=== PATIENT | female | born 1940 | race Caucasian/White ===

== ENCOUNTER 2016-07-08 10:20 | Emergency (ER) | payer MEDICARE, OTHER ==
[~2016-07-08 10:20] MED LIST: ASPIRIN81 MG PO; B-12500 MCG PO; CEFDINIR300 MG PO; CEFTIN250 MG PO; COLACE100 MG PO; COUMADIN2.5 MG PO; LACTULOSE10 G/15 ML PO; LASIX20 MG PO; LEVAQUIN500 MG PO; LEVAQUIN750 MG PO; LIPITOR10 MG PO; LOPRESSOR25 MG PO; METOPROLOL 1212.5 MG PO; PRILOSEC20 MG PO; PROBIOTIC1 EAC1 PO; XIFAXAN550 MG PO; ZINC SULFATE220 M1 PO
[2016-07-08 10:54] LABS: BILIRUBIN NEGATIVE (NEGATIVE); BLOOD 1+ Ery/uL (NEGATIVE); CLARITY CLEAR (CLEAR); COLOR YELLOW (YELLOW); GLUCOSE (U) NORMAL (NORMAL); KETONE (U) NEGATIVE (NEGATIVE); LEUKOCYTES 2+ Leu/uL (NEGATIVE); NITRITE POSITIVE (NEGATIVE); PROTEIN NEGATIVE (NEGATIVE); pH 8.5 (5.0-9.0)
[2016-07-08 10:56] LABS: BASOPHIL 0.1 % (0-2); EOSINOPHIL 0 % (0-7); HCT 44.6 % (37.0-47.0); HGB 15.2 g/dl (12.5-16.0); LYMPHOCYTE 16.3 % (15-48); MCH 33.9 pg (25.0-31.0); MCHC 34.1 g/dL (32.0-36.0); MCV 99.6 fL (78.0-100.0); MONOCYTE 10.4 % (0-12); MPV 10.6 fL (6.0-9.5); NEUTROPHIL 73.2 % (41-80); PLT 80 K/uL (150-400); RBC 4.48 M/uL (4.20-5.40); RDW 15.3 % (11.5-14.0); WBC 7.1 K/uL (4.0-10.5)
[2016-07-08 11:07] LABS: BACTERIA 4+
[2016-07-08 11:09] LABS: ALBUMIN 3.3 g/dL (3.4-4.8); BILIRUBIN - TOTAL 2.1 mg/dL (0.1-1.0); CREATININE 0.6 mg/dL (0.5-1.0); GLOBULIN (CALCULATION) 2.8 g/dL (2.2-4.2); POTASSIUM 4.7 mmol/L (3.5-5.1); TOTAL PROTEIN 6.1 g/dL (6.4-8.3)
== END 2016-07-08 12:40 | disposition home or self-care (01) ==
LOC: FER 10:20
PROVIDERS: Emergency Medicine
DX: N39.0 Urinary tract infection, site not specified (principal); R41.0 Disorientation, unspecified; I87.8 Other specified disorders of veins; R53.83 Other fatigue; K74.60 Unspecified cirrhosis of liver; Z87.440 Personal history of urinary (tract) infections; Z79.899 Other long term (current) drug therapy
CPT/HCPCS: 36415; 80053; 81001; 82140; 85025

== ENCOUNTER 2016-08-14 08:43 | Inpatient (IN) | payer MEDICARE, OTHER ==
[~2016-08-14] VITALS: Ht 177.8 cm; Wt 76.3 kg
[2016-08-14 09:28] LABS: BASOPHIL 0.5 % (0-2); EOSINOPHIL 1.3 % (0-7); HCT 41.6 % (37.0-47.0); HGB 13.9 g/dl (12.5-16.0); LYMPHOCYTE 30.8 % (15-48); MCHC 33.4 g/dL (32.0-36.0); MCV 101.7 fL (78.0-100.0); MONOCYTE 17.1 % (0-12); MPV 11.4 fL (6.0-9.5); NEUTROPHIL 50.3 % (41-80); RBC 4.09 M/uL (4.20-5.40); RDW 15.6 % (11.5-14.0)
[2016-08-14 09:30] LABS: BILIRUBIN NEGATIVE (NEGATIVE); BLOOD 2+ Ery/uL (NEGATIVE); CLARITY SLIGHTLY HAZY (CLEAR); COLOR YELLOW (YELLOW); GLUCOSE (U) NORMAL (NORMAL); KETONE (U) NEGATIVE (NEGATIVE); LEUKOCYTES 3+ Leu/uL (NEGATIVE); NITRITE POSITIVE (NEGATIVE); PROTEIN NEGATIVE (NEGATIVE); pH 8.5 (5.0-9.0)
[2016-08-14 09:31] LABS: PLT 82 K/uL (150-400); WBC 3.8 K/uL (4.0-10.5)
[2016-08-14 09:34] LABS: BACTERIA 4+; URINARY WBC TNTC
[2016-08-14 09:41] LABS: ALBUMIN 3.3 g/dL (3.4-4.8); BILIRUBIN - TOTAL 1.5 mg/dL (0.1-1.0); CREATININE 0.6 mg/dL (0.5-1.0); GLOBULIN (CALCULATION) 2.9 g/dL (2.2-4.2); POTASSIUM 4.5 mmol/L (3.5-5.1); TOTAL PROTEIN 6.2 g/dL (6.4-8.3)
[2016-08-14 20:55] LABS: AMPHETAMINES NEGATIVE (NEGATIVE); BARBITURATES NEGATIVE (NEGATIVE); BENZODIAZEPINES NEGATIVE (NEGATIVE); COCAINE NEGATIVE (NEGATIVE); MARIJUANA (THC) NEGATIVE (NEGATIVE); METHADONE NEGATIVE (NEGATIVE); TRICYCLIC ANTIDEPRESSANT NEGATIVE (NEGATIVE)
[2016-08-14 22:17] LABS: BASOPHIL 0.5 % (0-2); EOSINOPHIL 0.5 % (0-7); HCT 40.1 % (37.0-47.0); HGB 13.2 g/dl (12.5-16.0); LYMPHOCYTE 24.7 % (15-48); MCH 33.7 pg (25.0-31.0); MCHC 32.9 g/dL (32.0-36.0); MCV 102.3 fL (78.0-100.0); MONOCYTE 14.9 % (0-12); MPV 10.3 fL (6.0-9.5); NEUTROPHIL 59.4 % (41-80); PLT 80 K/uL (150-400); RBC 3.92 M/uL (4.20-5.40); RDW 15.5 % (11.5-14.0); WBC 4.2 K/uL (4.0-10.5)
[2016-08-14 22:27] LABS: INR 3.42 (0.9-1.2); PROTHROMBIN TIME 33.7 SECONDS (11.7-14.0)
[2016-08-14 22:28] LABS: PTT 43.6 SECONDS (23.2-31.4)
[2016-08-14 22:31] LABS: LACTIC ACID 1.3 mmol/L (0.5-2.2)
[2016-08-14 22:34] LABS: BILIRUBIN - TOTAL 1.3 mg/dL (0.1-1.0); CREATININE 0.6 mg/dL (0.5-1.0); GLOBULIN (CALCULATION) 2.5 g/dL (2.2-4.2); POTASSIUM 4.3 mmol/L (3.5-5.1); TOTAL PROTEIN 5.5 g/dL (6.4-8.3)
[2016-08-15 05:55] LABS: BASOPHIL 0.5 % (0-2); EOSINOPHIL 1.6 % (0-7); HCT 39.2 % (37.0-47.0); HGB 12.9 g/dl (12.5-16.0); LYMPHOCYTE 32.6 % (15-48); MCH 33.7 pg (25.0-31.0); MCHC 32.9 g/dL (32.0-36.0); MCV 102.3 fL (78.0-100.0); MONOCYTE 14.6 % (0-12); MPV 11.1 fL (6.0-9.5); NEUTROPHIL 50.7 % (41-80); RBC 3.83 M/uL (4.20-5.40); RDW 15.6 % (11.5-14.0); WBC 4.4 K/uL (4.0-10.5)
[2016-08-15 05:57] LABS: PLT 67 K/uL (150-400)
[2016-08-15 06:15] LABS: CREATININE 0.5 mg/dL (0.5-1.0); POTASSIUM 3.8 mmol/L (3.5-5.1)
[2016-08-16 04:11] LABS: HCT 40.6 % (37.0-47.0); MCH 32.9 pg (25.0-31.0); MCV 102.8 fL (78.0-100.0); MPV 10.8 fL (6.0-9.5); RBC 3.95 M/uL (4.20-5.40); RDW 15.3 % (11.5-14.0); WBC 4.1 K/uL (4.0-10.5)
[2016-08-16 04:24] LABS: INR 2.9 (0.9-1.2); PROTHROMBIN TIME 29.6 SECONDS (11.7-14.0)
[2016-08-16 04:33] LABS: ALBUMIN 2.7 g/dL (3.4-4.8); BILIRUBIN - TOTAL 1.4 mg/dL (0.1-1.0); CREATININE 0.4 mg/dL (0.5-1.0); GLOBULIN (CALCULATION) 2.2 g/dL (2.2-4.2); POTASSIUM 4.4 mmol/L (3.5-5.1); TOTAL PROTEIN 4.9 g/dL (6.4-8.3)
[2016-08-17 04:49] LABS: HCT 39.7 % (37.0-47.0); HGB 12.9 g/dl (12.5-16.0); MCH 33.2 pg (25.0-31.0); MCHC 32.5 g/dL (32.0-36.0); MCV 102.3 fL (78.0-100.0); MPV 10.6 fL (6.0-9.5); RBC 3.88 M/uL (4.20-5.40); RDW 15.1 % (11.5-14.0); WBC 3.5 K/uL (4.0-10.5)
[2016-08-17 05:01] LABS: INR 2.65 (0.9-1.2); PROTHROMBIN TIME 27.6 SECONDS (11.7-14.0)
[2016-08-17 05:16] LABS: CREATININE 0.4 mg/dL (0.5-1.0); POTASSIUM 4.5 mmol/L (3.5-5.1)
[2016-08-18 05:19] LABS: HCT 41.2 % (37.0-47.0); HGB 13.5 g/dl (12.5-16.0); MCH 33.9 pg (25.0-31.0); MCHC 32.8 g/dL (32.0-36.0); MCV 103.5 fL (78.0-100.0); MPV 10.8 fL (6.0-9.5); RBC 3.98 M/uL (4.20-5.40); RDW 15.1 % (11.5-14.0); WBC 3.2 K/uL (4.0-10.5)
[2016-08-18 05:29] LABS: INR 2.05 (0.9-1.2); PROTHROMBIN TIME 22.5 SECONDS (11.7-14.0)
[2016-08-18 05:42] LABS: ALBUMIN 2.7 g/dL (3.4-4.8); CREATININE 0.5 mg/dL (0.5-1.0); GLOBULIN (CALCULATION) 2.5 g/dL (2.2-4.2); POTASSIUM 4.4 mmol/L (3.5-5.1); TOTAL PROTEIN 5.2 g/dL (6.4-8.3)
--- NOTE | 2016-08-18 14:47 | NUR ---
REVIEWED DISCHARGE INSTRUCTIONS WITH PT AND DAUGHTER , REVIEWED ANTIBIOTIC AND LENGTH OF THERAPY, [facility] MADE AWARE OF PT DISCHARGE DR OLMEDO RECOMMEDED PT FOLLOW UP WITH DR FERREIRA REGARDING FREQUENT UTI DR COLEMAN REGARDING LOW PLATELET COUNT, AND DR BLANCO FOR FOLLOW UP APPT DAUGHTER AND PT VERBALIZED UNDERSTANDING DENIES PAIN OR DISCOMFORT IV DISCONTINUED WITHOUT DIFFICULTY PT ASSISTED TO POV
== END 2016-08-18 12:30 | disposition home health service (06) | DRG 871 ==
LOC: FER 08:43 → FMS 23:06 → FER 23:06 → FMS 23:30
PROVIDERS: Emergency Medicine; Internal Medicine; ADMIT Internal Medicine
DX: A41.9 Sepsis, unspecified organism (principal); G93.41 Metabolic encephalopathy; D69.6 Thrombocytopenia, unspecified; N39.0 Urinary tract infection, site not specified; I48.2 Chronic atrial fibrillation; Z95.2 Presence of prosthetic heart valve; B96.1 Klebsiella pneumoniae [K. pneumoniae] as the cause of diseases classified elsewhere; E03.9 Hypothyroidism, unspecified; Z96.641 Presence of right artificial hip joint; Z88.6 Allergy status to analgesic agent; Z88.8 Allergy status to other drugs, medicaments and biological substances; Z79.01 Long term (current) use of anticoagulants; D72.819 Decreased white blood cell count, unspecified; Z86.73 Personal history of transient ischemic attack (TIA), and cerebral infarction without residual deficits; I87.2 Venous insufficiency (chronic) (peripheral)
CPT/HCPCS: 36415; 70450; 71010; 80048; 80053; 80074; 80305; 81001; 82140; 83605; 83690; 84443; 85025; 85610; 85730; 87040; 87076; 87088; 87186; 93005

== ENCOUNTER 2016-09-10 15:51 | Emergency (ER) | payer MEDICARE, OTHER ==
[2016-09-10 16:44] LABS: BASOPHIL 0.5 % (0-2); EOSINOPHIL 0.3 % (0-7); HCT 42.6 % (37.0-47.0); HGB 14.8 g/dl (12.5-16.0); LYMPHOCYTE 18.3 % (15-48); MCH 34.8 pg (25.0-31.0); MCHC 34.7 g/dL (32.0-36.0); MCV 100.2 fL (78.0-100.0); MONOCYTE 12.2 % (0-12); MPV 11.4 fL (6.0-9.5); NEUTROPHIL 68.7 % (41-80); RBC 4.25 M/uL (4.20-5.40); RDW 14.9 % (11.5-14.0); WBC 6.2 K/uL (4.0-10.5)
[2016-09-10 16:50] LABS: PLT 75 K/uL (150-400)
[2016-09-10 17:04] LABS: LACTIC ACID 2.2 mmol/L (0.5-2.2)
[2016-09-10 17:05] LABS: ALBUMIN 3.4 g/dL (3.4-4.8); BILIRUBIN - TOTAL 2.2 mg/dL (0.1-1.0); CREATININE 0.5 mg/dL (0.5-1.0); GLOBULIN (CALCULATION) 3.2 g/dL (2.2-4.2); POTASSIUM 4.6 mmol/L (3.5-5.1); TOTAL PROTEIN 6.6 g/dL (6.4-8.3)
[2016-09-10 18:12] LABS: BILIRUBIN NEGATIVE (NEGATIVE); BLOOD 1+ Ery/uL (NEGATIVE); CLARITY CLEAR (CLEAR); COLOR YELLOW (YELLOW); GLUCOSE (U) NORMAL (NORMAL); KETONE (U) TRACE mg/dL (NEGATIVE); LEUKOCYTES 2+ Leu/uL (NEGATIVE); NITRITE NEGATIVE (NEGATIVE); PROTEIN NEGATIVE (NEGATIVE); SPECIFIC GRAVITY 1.015 (1.001-1.030); UROBILINOGEN >=8.0 mg/dL (0.2-1.0); pH 6.5 (5.0-9.0)
[2016-09-10 18:19] LABS: BACTERIA TRACE
== END 2016-09-10 19:00 | disposition home or self-care (01) ==
LOC: FER 15:51
PROVIDERS: Internal Medicine
DX: R05 Cough (principal); I48.91 Unspecified atrial fibrillation; I10 Essential (primary) hypertension; Z88.2 Allergy status to sulfonamides; Z79.01 Long term (current) use of anticoagulants; Z79.899 Other long term (current) drug therapy; Z79.82 Long term (current) use of aspirin
CPT/HCPCS: 36415; 36600; 71010; 80053; 81001; 82803; 83605; 85025; 87040

== ENCOUNTER 2016-12-10 23:19 | Inpatient (IN) | payer MEDICARE, OTHER ==
[~2016-12-10] VITALS: Ht 175.3 cm; Wt 76.7 kg
[2016-12-11 00:23] LABS: BILIRUBIN NEGATIVE (NEGATIVE); BLOOD 1+ Ery/uL (NEGATIVE); CLARITY CLOUDY (CLEAR); COLOR YELLOW (YELLOW); GLUCOSE (U) NORMAL (NORMAL); KETONE (U) NEGATIVE (NEGATIVE); LEUKOCYTES 1+ Leu/uL (NEGATIVE); NITRITE NEGATIVE (NEGATIVE); PROTEIN NEGATIVE (NEGATIVE); UROBILINOGEN >=8.0 mg/dL (0.2-1.0); pH 8.5 (5.0-9.0)
[2016-12-11 00:23] LABS: BASOPHIL 0.6 % (0-2); EOSINOPHIL 1.5 % (0-7); HCT 45.3 % (37.0-47.0); HGB 14.7 g/dl (12.5-16.0); LYMPHOCYTE 42.4 % (15-48); MCH 32.5 pg (25.0-31.0); MCHC 32.5 g/dL (32.0-36.0); MONOCYTE 12.6 % (0-12); MPV 10.8 fL (6.0-9.5); NEUTROPHIL 42.9 % (41-80); RBC 4.53 M/uL (4.20-5.40); RDW 16.5 % (11.5-14.0); WBC 3.4 K/uL (4.0-10.5)
[2016-12-11 00:27] LABS: BACTERIA 3+
[2016-12-11 00:30] LABS: PLT 75 K/uL (150-400)
[2016-12-11 00:36] LABS: INR 3.4 (0.9-1.2); PROTHROMBIN TIME 33.3 SECONDS (11.4-13.2)
[2016-12-11 00:37] LABS: PTT 47.4 SECONDS (24.3-32.1)
[2016-12-11 00:42] LABS: BILIRUBIN - TOTAL 1.5 mg/dL (0.1-1.0); CREATININE 0.7 mg/dL (0.5-1.0); POTASSIUM 4.4 mmol/L (3.5-5.1)
[2016-12-11 00:51] LABS: LACTIC ACID 1.8 mmol/L (0.5-2.2)
[2016-12-11 07:06] LABS: INR 3.52 (0.9-1.2); PROTHROMBIN TIME 34.2 SECONDS (11.4-13.2)
[2016-12-11 11:06] LABS: BILIRUBIN NEGATIVE (NEGATIVE); BLOOD 1+ Ery/uL (NEGATIVE); COLOR YELLOW (YELLOW); GLUCOSE (U) NORMAL (NORMAL); KETONE (U) NEGATIVE (NEGATIVE); LEUKOCYTES NEGATIVE Leu/uL (NEGATIVE); NITRITE NEGATIVE (NEGATIVE); PROTEIN NEGATIVE (NEGATIVE); SPECIFIC GRAVITY 1.015 (1.001-1.030); UROBILINOGEN >=8.0 mg/dL (0.2-1.0); pH 8.5 (5.0-9.0)
[2016-12-11 11:13] LABS: CLARITY SLIGHTLY HAZY (CLEAR)
[2016-12-11 11:17] LABS: AMORPHOUS URATES CRYSTALS MODERATE; SQUAMOUS EPITHELIAL CELLS RARE; URINARY WBC RARE
[2016-12-12 06:05] LABS: HCT 42.7 % (37.0-47.0); HGB 14.3 g/dl (12.5-16.0); MCH 33.3 pg (25.0-31.0); MCHC 33.5 g/dL (32.0-36.0); MCV 99.5 fL (78.0-100.0); MPV 10.4 fL (6.0-9.5); RBC 4.29 M/uL (4.20-5.40); RDW 16.9 % (11.5-14.0)
[2016-12-12 06:12] LABS: WBC 2.8 K/uL (4.0-10.5)
[2016-12-12 06:18] LABS: INR 3.43 (0.9-1.2); PROTHROMBIN TIME 33.5 SECONDS (11.4-13.2)
[2016-12-12 06:32] LABS: CREATININE 0.6 mg/dL (0.5-1.0); POTASSIUM 4.2 mmol/L (3.5-5.1)
[2016-12-13 06:05] LABS: CREATININE 0.5 mg/dL (0.5-1.0); POTASSIUM 4.6 mmol/L (3.5-5.1)
[2016-12-13 06:13] LABS: INR 4.5 (0.9-1.2); PROTHROMBIN TIME 41.8 SECONDS (11.4-13.2)
[2016-12-14 07:32] LABS: CREATININE 0.4 mg/dL (0.5-1.0); MAGNESIUM 1.41 mg/dL (1.40-2.10); POTASSIUM 4.4 mmol/L (3.5-5.1)
[2016-12-14 09:57] LABS: INR 3.19 (0.9-1.2); PROTHROMBIN TIME 31.6 SECONDS (11.4-13.2)
== END 2016-12-14 14:03 | disposition home health service (06) | DRG 441 ==
LOC: FER 23:19 → FMS 12-11 01:00 → FTCU 12-11 01:00
PROVIDERS: Emergency Medicine Emergency Medical Services; Nurse Practitioner; ADMIT Internal Medicine
DX: K72.00 Acute and subacute hepatic failure without coma (principal); J96.01 Acute respiratory failure with hypoxia; G93.41 Metabolic encephalopathy; E87.2 Acidosis; J96.02 Acute respiratory failure with hypercapnia; E72.20 Disorder of urea cycle metabolism, unspecified; D69.6 Thrombocytopenia, unspecified; B02.29 Other postherpetic nervous system involvement; E83.42 Hypomagnesemia; Z95.2 Presence of prosthetic heart valve; Z79.01 Long term (current) use of anticoagulants; I48.0 Paroxysmal atrial fibrillation; E03.9 Hypothyroidism, unspecified; E78.5 Hyperlipidemia, unspecified; I10 Essential (primary) hypertension; Z88.8 Allergy status to other drugs, medicaments and biological substances; Z88.3 Allergy status to other anti-infective agents; G47.30 Sleep apnea, unspecified; J44.9 Chronic obstructive pulmonary disease, unspecified; Z79.82 Long term (current) use of aspirin; Z88.2 Allergy status to sulfonamides; Z88.5 Allergy status to narcotic agent; Z96.641 Presence of right artificial hip joint; Z87.891 Personal history of nicotine dependence
CPT/HCPCS: 36415; 36600; 76700; 80048; 80053; 81001; 82140; 82803; 83605; 83735; 84443; 84484; 85025; 85610; 85730; 87088; 93005; 94660; 97110; 97116; 97162; 97166; 97530; 97530-GP; 97535; J3475